=== PATIENT | male | born 1965 | race Caucasian/White ===

== ENCOUNTER 2021-11-04 14:03 | Inpatient (IN) ==
[2021-11-04 15:10] LABS: Basophils % 0.4 % (0.0-0.8); Eosinophils % 0.4 % (0.00-10.9); Hematocrit 42.9 VOL% (42.0-52.0); Hemoglobin 14.8 GM/DL (14.0-18.0); Immature Granulocytes % 0.3 %; Immature Granulocytes Absolute 0.03 #; Lymphocytes # 2.2 10*3/uL (1.4-4.0); Lymphocytes % 24.1 % (21.2-54.2); Mean Corpuscular HGB Conc 34.5 GM/DL (32-36); Mean Corpuscular Volume 94.1 FL (87-102); Mean Platelet Volume 10.9 FL (9.6-12.0); Monocytes % 7.2 % (1.7-12.7); Neutrophils % 67.6 % (38.7-73.9); Platelet Count 248 T/CUMM (130-400); Red Blood Count 4.56 MC/CUMM (3.8-5.5); Red Cell Distribution Width 13.3 % (9.3-17.3)
[2021-11-04 15:24] LABS: Bilirubin,Total 0.6 MG/DL (0.20-1.00); Calcium 8.9 MG/DL (8.5-10.1); Osmolality,Calculated 288.4 MOS/KG (273-304); Potassium 4.1 MMOL/L (3.5-5.1); Total Protein 7.1 G/DL (6.4-8.2)
[2021-11-04] MEDS ORDERED: ASPIRIN 325 MG TABLET PO STA (15:47)
[2021-11-04] MEDS ORDERED: ENOXAPARIN 100 MG/ML SYRINGE SUBCUT STA (15:47)
[2021-11-04] MEDS ORDERED: NITROGLYCERIN 2% OINT 1 INCH/GM PACK TOP STA (15:51)
[2021-11-04] MEDS ORDERED: amLODIPine 5 MG TABLET PO STA (15:51)
[2021-11-04] MEDS ORDERED: ENOXAPARIN 30 MG/0.3 ML SYRINGE ONE (15:52)
[2021-11-04] MEDS ORDERED: hydrALAZINE 20 MG/1 ML VIAL IV STA (16:21)
[2021-11-04] MEDS ORDERED: ACETAMINOPHEN 325 MG TABLET PO PRN (16:38)
[2021-11-04] MEDS ORDERED: NICOTINE 21 MG/24 HR PATCH TRANSDERM PRN (16:38)
[2021-11-04] MEDS ORDERED: GLUCAGON 1 MG VIAL IM PRN (16:38)
[2021-11-04] MEDS ORDERED: ALBUTEROL 2.5 MG/3 ML NEB RESP TX PRN (16:38)
[2021-11-04] MEDS ORDERED: ONDANSETRON 4 MG/2 ML VIAL IV PRN (16:38)
[2021-11-04] MEDS ORDERED: DEXTROSE 10% 250 ML BAG IV PRN (16:49)
[2021-11-04] MEDS: SODIUM CHLORIDE 0.9% 1,000 ML IV SCH (17:41)
[2021-11-04] MEDS ORDERED: ENOXAPARIN 150 MG/ML SYRINGE SUBCUT ONE (19:30)
[2021-11-04] MEDS: PANTOPRAZOLE 40 MG TABLET PO SCH (20:32)
[2021-11-05 02:25] LABS: Hyaline Casts,Urine 1 /LPF (0-3); Mucus,Urine Occasional /LPF (Occasional); RBC,Urine <1 /HPF (0-4)
[2021-11-05 02:26] LABS: Bilirubin,Urine Negative (Negative); Blood, Urine Negative (Negative); Glucose,Urine (UA) Negative (Negative); Ketones,Urine Negative (Negative); Nitrite,Urine Negative (Negative); Protein,Urine >=300 mg/dL (Negative); Urine Appearance Clear (Clear); Urine Color Yellow (Yellow); Urine Specific Gravity >= 1.030 (1.001-1.035); Urine Urobilinogen 0.2 eU/dL (<2.0); Urine pH 5.5 (4.5-8.0)
[2021-11-05 04:59] LABS: Basophils % 0.3 % (0.0-0.8); Eosinophils # 0.1 10*3/uL (0.0-0.87); Eosinophils % 0.7 % (0.00-10.9); Hematocrit 39.7 VOL% (42.0-52.0); Hemoglobin 13.2 GM/DL (14.0-18.0); Immature Granulocytes % 0.3 %; Immature Granulocytes Absolute 0.03 #; Lymphocytes % 31.5 % (21.2-54.2); Mean Corpuscular HGB Conc 33.2 GM/DL (32-36); Mean Corpuscular Volume 94.7 FL (87-102); Mean Platelet Volume 10.4 FL (9.6-12.0); Monocytes % 8.8 % (1.7-12.7); Neutrophils % 58.4 % (38.7-73.9); Platelet Count 213 T/CUMM (130-400); Red Blood Count 4.19 MC/CUMM (3.8-5.5); Red Cell Distribution Width 13.2 % (9.3-17.3); White Blood Count 9.4 T/CUMM (4-12)
[2021-11-05 05:24] LABS: Albumin 3.1 G/DL (3.4-5.0); Calcium 8.5 MG/DL (8.5-10.1); Osmolality,Calculated 285.3 MOS/KG (273-304); Risk Ratio 4.27; Thyroid Stimulating Hormone 1.88 uIU/ml (0.358-3.74); Total Protein 6.2 G/DL (6.4-8.2); VLDL Cholesterol 33.4 MG/DL
[2021-11-05] MEDS: SODIUM CHLORIDE 0.9% 1,000 ML IV SCH ×2 (06:29→17:18)
[2021-11-05] MEDS: ASPIRIN EC 81 MG TABLET PO SCH ×2 (06:53→11:09)
[2021-11-05] MEDS: METOPROLOL TARTRATE 25 MG TABLET PO SCH ×3 (06:54→20:07)
[2021-11-05] MEDS ORDERED: ASPIRIN EC 81 MG TABLET PO SCH (09:00)
[2021-11-05] MEDS: ROSUVASTATIN 20 MG TABLET PO SCH (11:09)
[2021-11-05] MEDS: amLODIPine 10 MG TABLET PO SCH (11:09)
[2021-11-05] MEDS: PANTOPRAZOLE 40 MG TABLET PO SCH ×2 (11:09→20:07)
[2021-11-05] MEDS ORDERED: HEPARIN/NACL 0.9% 2 UNITS/ML 0 UNIT/0 ML BAG IV ONE (11:31)
[2021-11-05] MEDS ORDERED: fentaNYL 100 MCG/2 ML VIAL ONE (12:56)
[2021-11-05] MEDS ORDERED: MIDAZOLAM 2 MG/2 ML VIAL ONE (12:56)
[2021-11-05] MEDS ORDERED: hydrALAZINE 20 MG/1 ML VIAL ONE (13:02)
[2021-11-05] MEDS ORDERED: NITROGLYCERIN 2% OINT 1 INCH/GM PACK TOP ONE ×2 (13:05→13:55)
[2021-11-05] MEDS ORDERED: CLOPIDOGREL 300 MG TABLET ONE (13:08)
[2021-11-05] MEDS ORDERED: HEPARIN 5,000 UNIT/1 ML VIAL ONE ×2 (13:14→13:29)
[2021-11-05] MEDS ORDERED: NITROGLYCERIN DRIP 50 MG/250 ML BOTTLE IV ONE (13:15)
[2021-11-05] MEDS ORDERED: HYDROmorphone 1 MG/1 ML SYRINGE ONE (13:52)
[2021-11-05] MEDS ORDERED: HEPARIN/NACL 0.9% 2 UNITS/ML 2,000 UNIT/1,000 ML BAG IV ONE ×2 (13:59→14:00)
[2021-11-05] MEDS ORDERED: ENOXAPARIN 40 MG/0.4 ML SYRINGE SUBCUT SCH (17:00)
[2021-11-05] MEDS: hydrALAZINE 25 MG TABLET PO SCH (20:06)
[2021-11-06] MEDS: hydrALAZINE 20 MG/1 ML VIAL IV PRN ×2 (00:31→12:01)
[2021-11-06] MEDS: SODIUM CHLORIDE 0.9% 1,000 ML IV SCH ×2 (02:20→05:54)
[2021-11-06 05:30] LABS: Basophils % 0.4 % (0.0-0.8); Eosinophils # 0.1 10*3/uL (0.0-0.87); Eosinophils % 0.6 % (0.00-10.9); Immature Granulocytes % 0.4 %; Immature Granulocytes Absolute 0.03 #; Lymphocytes # 1.8 10*3/uL (1.4-4.0); Lymphocytes % 21.4 % (21.2-54.2); Mean Corpuscular HGB Conc 34.1 GM/DL (32-36); Mean Corpuscular Volume 93.4 FL (87-102); Mean Platelet Volume 10.3 FL (9.6-12.0); Neutrophils % 66.2 % (38.7-73.9); Platelet Count 213 T/CUMM (130-400); Red Blood Count 4.39 MC/CUMM (3.8-5.5); Red Cell Distribution Width 13.1 % (9.3-17.3); White Blood Count 8.5 T/CUMM (4-12)
[2021-11-06 05:49] LABS: Calcium 8.4 MG/DL (8.5-10.1); Potassium 3.7 MMOL/L (3.5-5.1)
[2021-11-06] MEDS: PANTOPRAZOLE 40 MG TABLET PO SCH ×2 (08:49→20:37)
[2021-11-06] MEDS: METOPROLOL TARTRATE 25 MG TABLET PO SCH ×2 (08:49→20:37)
[2021-11-06] MEDS: CLOPIDOGREL 75 MG TABLET PO SCH (08:49)
[2021-11-06] MEDS: ASPIRIN EC 81 MG TABLET PO SCH (08:49)
[2021-11-06] MEDS: amLODIPine 10 MG TABLET PO SCH (08:49)
[2021-11-06] MEDS: hydrALAZINE 25 MG TABLET PO SCH ×2 (08:49→20:37)
[2021-11-06] MEDS: ROSUVASTATIN 20 MG TABLET PO SCH (08:49)
[2021-11-06] MEDS ORDERED: lisinopriL 10 MG TABLET PO ONE (12:17)
[2021-11-07 05:42] LABS: Basophils % 0.2 % (0.0-0.8); Eosinophils # 0.1 10*3/uL (0.0-0.87); Eosinophils % 0.7 % (0.00-10.9); Hematocrit 40.1 VOL% (42.0-52.0); Hemoglobin 13.8 GM/DL (14.0-18.0); Immature Granulocytes % 0.2 %; Immature Granulocytes Absolute 0.02 #; Lymphocytes % 24.3 % (21.2-54.2); Mean Corpuscular HGB Conc 34.4 GM/DL (32-36); Mean Platelet Volume 10.6 FL (9.6-12.0); Monocytes % 10.7 % (1.7-12.7); Neutrophils % 63.9 % (38.7-73.9); Platelet Count 196 T/CUMM (130-400); Red Blood Count 4.22 MC/CUMM (3.8-5.5); Red Cell Distribution Width 13.2 % (9.3-17.3); White Blood Count 8.2 T/CUMM (4-12)
[2021-11-07 05:53] LABS: Calcium 8.7 MG/DL (8.5-10.1); Osmolality,Calculated 278.5 MOS/KG (273-304); Potassium 3.9 MMOL/L (3.5-5.1)
[2021-11-07] MEDS: amLODIPine 10 MG TABLET PO SCH (08:45)
[2021-11-07] MEDS: CLOPIDOGREL 75 MG TABLET PO SCH (08:45)
[2021-11-07] MEDS: PANTOPRAZOLE 40 MG TABLET PO SCH (08:45)
[2021-11-07] MEDS: METOPROLOL TARTRATE 25 MG TABLET PO SCH (08:46)
[2021-11-07] MEDS: ROSUVASTATIN 20 MG TABLET PO SCH (08:46)
[2021-11-07] MEDS: hydrALAZINE 25 MG TABLET PO SCH (08:46)
[2021-11-07] MEDS: ASPIRIN EC 81 MG TABLET PO SCH (08:46)
[2021-11-07] MEDS ORDERED: lisinopriL 10 MG TABLET PO SCH (09:00)
[2021-11-07 13:03] VITALS: BP 154/95
== END 2021-11-07 16:00 | disposition home or self-care (01) | DRG 247 ==
LOC: N.EDINP 14:03 → N.ED 14:03 → SUATTDRO 17:09 → N.TELEN 17:30
PROVIDERS: ADMIT Internal Medicine; ATTEND Internal Medicine
PROC: CLCCHCL (ICD-10-PCS; 2021-11-05 13:15)

== ENCOUNTER 2021-12-25 16:18 | Inpatient (IN) ==
[2021-12-25] MEDS ORDERED: HEPARIN 5,000 UNIT/1 ML VIAL ONE ×2 (16:23→16:33)
[2021-12-25] MEDS ORDERED: TICAGRELOR 90 MG TABLET ONE ×2 (16:23→16:25)
[2021-12-25] MEDS ORDERED: HEPARIN/NACL 0.9% 2 UNITS/ML 4,000 UNIT/2,000 ML BAG IV ONE (16:34)
[2021-12-25] MEDS ORDERED: EPTIFIBATIDE 75 MG/100 ML BOTTLE IV ONE (16:43)
[2021-12-25] MEDS ORDERED: EPTIFIBATIDE 20,000 MCG/10 ML VIAL ONE ×2 (16:43→16:48)
[2021-12-25] MEDS: EPTIFIBATIDE 75 MG/100 ML BOTTLE IV SCH ×2 (16:50→21:30)
[2021-12-25] MEDS ORDERED: fentaNYL 100 MCG/2 ML VIAL ONE (16:52)
[2021-12-25] MEDS ORDERED: MIDAZOLAM 2 MG/2 ML VIAL ONE (16:52)
[2021-12-25] MEDS ORDERED: NITROGLYCERIN 2% OINT 1 INCH/GM PACK TOP ONE (17:25)
[2021-12-25 17:31] LABS: Basophils % 0.2 % (0.0-0.8); Hematocrit 29.9 VOL% (42.0-52.0); Immature Granulocytes % 0.5 %; Immature Granulocytes Absolute 0.05 #; Lymphocytes # 0.9 10*3/uL (1.4-4.0); Lymphocytes % 8.4 % (21.2-54.2); Mean Corpuscular HGB Conc 33.4 GM/DL (32-36); Mean Corpuscular Volume 94.9 FL (87-102); Mean Platelet Volume 10.5 FL (9.6-12.0); Monocytes # 0.7 10*3/uL (0.11-0.8); Neutrophils % 84.9 % (38.7-73.9); Platelet Count 160 T/CUMM (130-400); Red Blood Count 3.15 MC/CUMM (3.8-5.5); Red Cell Distribution Width 12.8 % (9.3-17.3); White Blood Count 10.8 T/CUMM (4-12)
[2021-12-25] MEDS ORDERED: SODIUM CHLORIDE 0.9% 1,000 ML IV SCH (18:30)
[2021-12-25] MEDS ORDERED: NITROGLYCERIN SL 0.4 MG TABLET SL PRN (18:35)
[2021-12-25 20:16] LABS: Alanine Aminotransferase 121 U/L (16-61); Albumin 4.1 G/DL (3.4-5.0); Alkaline Phosphatase 66 U/L (45-117); Aspartate Amino Transferase 801 U/L (0-37); Blood Urea Nitrogen 25 MG/DL (7-18); CKMB % 15.95 %; Carbon Dioxide 21 MMOL/L (21-32); Chloride 107 MMOL/L (98-107); Glucose 142 MG/DL (74-106); Potassium 4.8 MMOL/L (3.5-5.1); Sodium 136 MMOL/L (136-145); Total Protein 7.7 G/DL (6.4-8.2)
[2021-12-25 20:18] LABS: High Sensitive Troponin I* > 125000 ng/L (0-78)
[2021-12-25] MEDS ORDERED: LABETALOL 20 MG/4 ML SYRINGE IV PRN (20:59)
[2021-12-25] MEDS ORDERED: ALPRAZolam 0.25 MG TABLET PO PRN (21:02)
[2021-12-25] MEDS ORDERED: MORPHINE 2 MG/1 ML SYRINGE IV PRN (21:03)
[2021-12-25] MEDS: hydrALAZINE 25 MG TABLET PO SCH (21:20)
[2021-12-25] MEDS: METOPROLOL TARTRATE 25 MG TABLET PO SCH (21:20)
[2021-12-25] MEDS: ZOLPIDEM 5 MG TABLET PO PRN (22:26)
[2021-12-25] MEDS: hydrALAZINE 20 MG/1 ML VIAL IV PRN (23:11)
[2021-12-26 04:11] LABS: Basophils % 0.1 % (0.0-0.8); Hematocrit 39.1 VOL% (42.0-52.0); Hemoglobin 13.5 GM/DL (14.0-18.0); Immature Granulocytes % 0.3 %; Immature Granulocytes Absolute 0.04 #; Lymphocytes # 1.7 10*3/uL (1.4-4.0); Lymphocytes % 12.1 % (21.2-54.2); Mean Corpuscular HGB Conc 34.5 GM/DL (32-36); Mean Corpuscular Volume 94.9 FL (87-102); Mean Platelet Volume 10.7 FL (9.6-12.0); Monocytes # 1.5 10*3/uL (0.11-0.8); Monocytes % 10.6 % (1.7-12.7); Neutrophils % 76.9 % (38.7-73.9); Platelet Count 215 T/CUMM (130-400); Red Blood Count 4.12 MC/CUMM (3.8-5.5); Red Cell Distribution Width 12.8 % (9.3-17.3); White Blood Count 13.8 T/CUMM (4-12)
[2021-12-26 04:31] LABS: Risk Ratio 3.13; VLDL Cholesterol 22.4 MG/DL
[2021-12-26] MEDS: hydrALAZINE 20 MG/1 ML VIAL IV PRN (05:38)
[2021-12-26 06:41] LABS: Calcium 8.7 MG/DL (8.5-10.1); Osmolality,Calculated 279.7 MOS/KG (273-304); Potassium 4.4 MMOL/L (3.5-5.1)
[2021-12-26] MEDS: TICAGRELOR 90 MG TABLET PO SCH ×2 (08:02→20:24)
[2021-12-26] MEDS: hydrALAZINE 25 MG TABLET PO SCH ×3 (08:02→20:23)
[2021-12-26] MEDS: ROSUVASTATIN 20 MG TABLET PO SCH ×2 (08:02→20:23)
[2021-12-26] MEDS: ASPIRIN EC 81 MG TABLET PO SCH (08:02)
[2021-12-26] MEDS: METOPROLOL TARTRATE 25 MG TABLET PO SCH ×2 (08:02→20:23)
[2021-12-26] MEDS ORDERED: METOPROLOL SUCCINATE XL 50 MG TABLET PO SCH (09:00)
[2021-12-26 18:16] VITALS: BP 137/96
[2021-12-26] MEDS: ZOLPIDEM 5 MG TABLET PO PRN (20:24)
[2021-12-27 03:49] LABS: Basophils % 0.3 % (0.0-0.8); Eosinophils % 0.3 % (0.00-10.9); Hematocrit 41.3 VOL% (42.0-52.0); Immature Granulocytes % 0.3 %; Immature Granulocytes Absolute 0.03 #; Lymphocytes # 2.2 10*3/uL (1.4-4.0); Lymphocytes % 21.3 % (21.2-54.2); Mean Corpuscular HGB Conc 33.9 GM/DL (32-36); Mean Corpuscular Volume 94.9 FL (87-102); Mean Platelet Volume 10.5 FL (9.6-12.0); Monocytes # 1.2 10*3/uL (0.11-0.8); Monocytes % 11.7 % (1.7-12.7); Neutrophils % 66.1 % (38.7-73.9); Platelet Count 203 T/CUMM (130-400); Red Blood Count 4.35 MC/CUMM (3.8-5.5); Red Cell Distribution Width 12.5 % (9.3-17.3); White Blood Count 10.5 T/CUMM (4-12)
[2021-12-27 04:13] LABS: Potassium 4.1 MMOL/L (3.5-5.1)
[2021-12-27 08:11] LABS: CKMB % 8.71 %; High Sensitive Troponin I* 87740.2 ng/L (0-78)
[2021-12-27] MEDS: METOPROLOL TARTRATE 25 MG TABLET PO SCH ×2 (09:24→20:19)
[2021-12-27] MEDS: amLODIPine 10 MG TABLET PO SCH (09:24)
[2021-12-27] MEDS: ASPIRIN EC 81 MG TABLET PO SCH (09:24)
[2021-12-27] MEDS: TICAGRELOR 90 MG TABLET PO SCH ×2 (09:25→20:19)
[2021-12-27] MEDS: lisinopriL 20 MG TABLET PO SCH (09:26)
[2021-12-27] MEDS: hydrALAZINE 25 MG TABLET PO SCH ×3 (09:26→20:19)
[2021-12-27] MEDS: ZOLPIDEM 5 MG TABLET PO PRN (20:19)
[2021-12-27] MEDS: ROSUVASTATIN 20 MG TABLET PO SCH (20:19)
[2021-12-28 04:24] LABS: Basophils % 0.2 % (0.0-0.8); Eosinophils % 0.4 % (0.00-10.9); Hematocrit 40.4 VOL% (42.0-52.0); Hemoglobin 13.8 GM/DL (14.0-18.0); Immature Granulocytes % 0.6 %; Immature Granulocytes Absolute 0.06 #; Lymphocytes # 2.2 10*3/uL (1.4-4.0); Lymphocytes % 21.6 % (21.2-54.2); Mean Corpuscular HGB Conc 34.2 GM/DL (32-36); Mean Corpuscular Volume 94.8 FL (87-102); Mean Platelet Volume 10.6 FL (9.6-12.0); Monocytes # 1.2 10*3/uL (0.11-0.8); Monocytes % 11.8 % (1.7-12.7); Neutrophils % 65.4 % (38.7-73.9); Platelet Count 193 T/CUMM (130-400); Red Blood Count 4.26 MC/CUMM (3.8-5.5); Red Cell Distribution Width 12.5 % (9.3-17.3); White Blood Count 10.3 T/CUMM (4-12)
[2021-12-28 04:45] LABS: Calcium 8.9 MG/DL (8.5-10.1); Osmolality,Calculated 276.8 MOS/KG (273-304); Potassium 4.2 MMOL/L (3.5-5.1)
[2021-12-28 07:50] LABS: CKMB % 3.18 %; High Sensitive Troponin I* 49558.4 ng/L (0-78)
[2021-12-28] MEDS ORDERED: DAPAGLIFLOZIN 10 MG TABLET PO SCH (09:00)
[2021-12-28] MEDS ORDERED: METOPROLOL SUCCINATE XL 50 MG TABLET PO SCH (09:00)
[2021-12-28] MEDS: lisinopriL 20 MG TABLET PO SCH (09:14)
[2021-12-28] MEDS: amLODIPine 10 MG TABLET PO SCH (09:14)
[2021-12-28] MEDS: ASPIRIN EC 81 MG TABLET PO SCH (09:14)
[2021-12-28] MEDS: hydrALAZINE 25 MG TABLET PO SCH (09:14)
[2021-12-28] MEDS: TICAGRELOR 90 MG TABLET PO SCH (09:14)
== END 2021-12-28 12:45 | disposition home or self-care (01) | DRG 246 ==
LOC: N.CL 16:18 → N.ICU 17:41
PROVIDERS: ADMIT Internal Medicine Cardiovascular Disease; ATTEND Internal Medicine Cardiovascular Disease